=== PATIENT | male | born 1990 | race Caucasian/White ===

== ENCOUNTER 2022-03-05 14:36 | Emergency (ER) | payer SELFPAY ==
[2022-03-05 14:48] VITALS: BP 143/93; PULSE 85; RESP 16; TEMP 36.6; O2SAT 99
--- NOTE | 2022-03-05 15:23 | ED.DENTAL ---
HPI - Dental/Oral General Chief complaint: Dental/Oral Stated complaint: swollen right side of face Time Seen by Provider: 03/05/22 15:23 Source: patient, RN notes reviewed and old records reviewed Mode of arrival: ambulatory Limitations: no limitations History of Present Illness HPI Narrative: 31 year old male presents to [facility] care with complaints of dental pain to the right upper back molars since last night with swelling of his face noted. Patient reports that he has had past dental problems. Patient has taken some Ibuprofen for his discomfort. Some redness of gums around noted teeth #2,#3 teeth. Patient has no trismus with no difficulty swallowing or breathing. Patient has noted missing teeth and numeous areas of tooth decay. Patient has taken some Ibuprofen for his discomfort. MD Complaint: tooth pain Location: Tooth # (#2,#3) Onset (ago): day(s) (last night) Severity scale (1-10): 5 Treatment prior to arrival: oral analgesic Related Data Allergies Allergy/AdvReac Type Severity Reaction Status Date / Time No Known Allergies Allergy Mild Verified 03/05/22 14:49 Review of Systems Review of Systems: CONSTITUTIONAL: Denies fever, chills, or sweats. EYES: Denies visual changes, redness, or discharge. ENT: Denies rhinorrhea, congestion, sore throat, or otalgia, dental pain with redness and swelling to upper right molars with facial swelling CARDIOVASCULAR: Denies chest pain, palpitations, or edema. RESPIRATORY: Denies cough or dyspnea. GASTROINTESTINAL: Denies abdominal pain, nausea, vomiting, or diarrhea. GENITOURINARY: Denies dysuria or hematuria. SKIN: Denies rash or itching. MUSCULOSKELETAL: Denies back pain, joint pain, or myalgia. NEUROLOGIC: Denies headache, numbness, or weakness. PSYCHIATRIC: Denies anxiety or depression. All systems reviewed & are unremarkable except as noted in HPI and below [facility] Past Medical History Medical History (Updated 03/07/22 @ 15:29 by Rosalie Medina NP) History of dental problems Social History Social History (Updated 03/07/22 @ 15:30 by Rosalie Medina NP) Smoking status: Current every day smoker Tobacco type: cigarettes Alcohol intake: current Alcohol use details: social Substance use: unknown Living arrangements: with family Gender identity (if verbalized by the patient): Male Comments At time of signature, agree with nursing past medical, surgical, social and family history. There is no relevant family history pertinent to the presenting complaint Exam Narrative: GENERAL: Well-appearing, well-nourished, and in no acute distress. HEAD: Normocephalic, atraumatic. EYES: PERRLA and EOMI. ENT: Nares clear, no rhinorrhea or epistaxis. Mucous membranes moist, right sided facial swelling with dental pain to upper back molars which have obvious decay and some swelling around gums no Wilfredo angina noted no trismus, TM's normal with good light reflex, throat pink with no lesions or exudates. Patient has numerous teeth that have been extracted on the bottom with upper teeth with numerous areas of decay. NECK: Supple. no lymphadenopathy CHEST: Clear to auscultation. No respiratory distress.SAO2 99% on room air. HEART: Regular rate and rhythm. No murmur heard. Normal peripheral pulses. ABDOMEN: Soft, nontender, nondistended, normal active bowel sounds. EXTREMITIES: Normal range of motion. No edema. SKIN: Warm, dry, no rash. NEURO: No focal deficits. Alert and oriented x3. Course Course Level of Care: Express Care Visit Vital Signs Vital signs: Vital Signs Temperature 36.6 C 03/05/22 14:48 Pulse Rate 85 03/05/22 14:48 Respiratory Rate 16 03/05/22 14:48 Blood Pressure 143/93 H 03/05/22 14:48 Pulse Oximetry 99 03/05/22 14:48 Oxygen Delivery Room Air 03/05/22 14:48 Temperature 36.6 C 03/05/22 14:48 Pulse Rate 85 03/05/22 14:48 Respiratory Rate 16 03/05/22 14:48 Blood Pressure 143/93 H 03/05/22 14:48 Pulse Oximetry 99 03/05/22
== END 2022-03-05 15:39 | disposition home or self-care (01) ==
PROVIDERS: Emergency Provider Registered Nurse
DX: K04.7 Periapical abscess without sinus (principal); K02.9 Dental caries, unspecified; F17.210 Nicotine dependence, cigarettes, uncomplicated
CPT/HCPCS: 99213; G0463